=== PATIENT | female | born 1955 | race Caucasian/White ===

== ENCOUNTER 2020-12-09 16:42 | Emergency (ER) | payer OTHER ==
[~2020-12-09 16:42] MED LIST: COZAAR 25MG TAB25 MG PO; CYMBALTA 30MG C30 MG PO; EVISTA60 MG PO; HYDROCODONE-APA1 TAB PO; NAPROXEN500 MG PO; PRILOSEC20 MG PO; SYNTHROID88 MCG PO; TRELEGY ELLIPT1 EACH INH; XANAX0.5 MG PO
[2020-12-09] MEDS ORDERED: BACLOFEN 10MG T10 MG PO (19:12)
== END 2020-12-09 20:20 | disposition home or self-care (01) ==
LOC: FER 16:42
DX: R51.9 Headache, unspecified (principal); M54.2 Cervicalgia; E11.9 Type 2 diabetes mellitus without complications; I10 Essential (primary) hypertension; Z98.890 Other specified postprocedural states; V43.52XA Car driver injured in collision with other type car in traffic accident, initial encounter; Y92.410 Unspecified street and highway as the place of occurrence of the external cause
CPT/HCPCS: 70450; 72125; 72128; 96372; J1100; J1885